=== PATIENT | female | born 1950 | race Two or more races ===

== ENCOUNTER → 2019-02-17 | Day surgery (SDC) | payer OTHER ==
[~2019-02-17] MED LIST: ASA81 MG PO; COLACE100 MG PO; ENALAPRIL MALEAT5 MG PO; PERCOCET 5-3251 EACH PO
== END | disposition home or self-care (01) ==
LOC: ADM 02-07 12:15 → CIR.AMB 06:10
DX: D12.9 Benign neoplasm of anus and anal canal (principal)

== ENCOUNTER 2019-08-11 09:00 | Day surgery (SDC) | payer OTHER ==
[~2019-08-11 09:00] MED LIST changes: +SIMVASTATIN20 MG PO
[2019-08-11] MEDS ORDERED: COLACE100 MG PO (11:51)
[2019-08-11] MEDS ORDERED: PERCOCET 5-3251 EACH PO (11:51)
== END 2019-08-11 15:40 | disposition home or self-care (01) ==
LOC: CIR.AMB 09:00
DX: K62.0 Anal polyp (principal)